=== PATIENT | male | born 1975 | race Asian ===

== ENCOUNTER 2017-06-02 08:55 | Day surgery (SDC) | payer BC, OTHER ==
[~2017-06-02] VITALS: Ht 180.3 cm; Wt 88.9 kg
[~2017-06-02 08:55] MED LIST: AUGMENTIN 500-500 MG PO; K-PHOS ORIGINAL1 EA PO; MINOCYCLINE HC100 MG PO; PERCOCET 7.5-31 EACH PO; PROVENTIL HFA6.7 GM INH; ZITHROMAX250 MG PO
[2017-06-02] MEDS ORDERED: IBUPROFEN600 MG PO (13:56)
[2017-06-02] MEDS ORDERED: MAPAP325 MG PO (13:56)
[2017-06-02] MEDS ORDERED: PERCOCET 7.5-31 EACH PO (13:57)
--- NOTE | 2017-06-19 07:48 | OR ---
[facility] [address] [place], [place] [address] Signed DATE OF PROCEDURE: 06/02/17 PREOPERATIVE DIAGNOSES Recurrent ganglion, right volar distal forearm (radial side). POSTOPERATIVE DIAGNOSIS Recurrent ganglion, right volar distal forearm (radial side). PROCEDURE Exploration and excision of soft tissue/ganglion, right volar forearm. SURGEON: Greg Veras MD. ANESTHESIA Carole block (Greg Kelley) and local 7 mL of 0.25% Marcaine with Epinephrine. INDICATION This 41-year-old man is a patient of Dr. Marcio Miranda. In 1997, he underwent excision of a volar distal forearm ganglion by Dr. Mark. A transverse incision was used. The patient has developed a soft tissue mass that is firm in the same area which is increasingly symptomatic especially when weightlifting. 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 He wishes it to be excised. The risks of bleeding, infection, nerve injury, arterial injury, recurrent disease, and other unforeseen complications were reviewed in detail. He understands and wished to proceed. FINDINGS The anesthetic was quite good. Intravenous sedation was maintained as well. Notably when the tourniquet was inflated, the nodule was less apparent. I was certain there was no radial artery aneurysm accounting for the mass clinically preoperatively. Dissection in the region of the radial artery did demonstrate a firm nodular soft tissue mass no doubt accounting for the finding of probable ganglion. The radial cutaneous branch nerve was identified and preserved as well. There were no findings of aneurysm of the artery itself, only the fibrous karon-adventitial soft tissue mass related to the radial artery accounting most likely for the nodule in question. DESCRIPTION OF PROCEDURE The patient was brought to the operating room and given a Carole block anesthetic. Preoperative antibiotic Ancef was given. The right arm was prepared with a Chlorhexidine solution and draped sterilely. A transverse scar from prior operation was easily identified and palpation of the area showed the mass that had been apparent in the Electronically Signed By: GREG VERAS MD 06/19/17 0748 PATIENT NAME: OLI TAMAYO OPERATIVE REPORT DATE OF : 79 PHYSICIAN: GREG VERAS MD REPORT #: [id number] REPORT IS CONFIDENTIAL AND NOT TO BE RELEASED WITHOUT AUTHORIZATION [facility] [address] [place], [place] [address] Signed preoperative area to be markedly diminished in its appearance. A longitudinal incision was made transecting the previous scar in the area known to have the nodule. Dissection was carried through the dermis sharply with loupe magnification and headlight illumination. Dissection was undertaken ultimately identifying a tubular structure which was initially suggestive of the radial artery, but which ultimately was found to be a cutaneous nerve branch of the radial nerve and this was unharmed. Dissection was undertaken more deeply and medially (in the ulnar direction) which identified the radial artery proper. The soft tissue mass on the medial anterior aspect was dissected free and it had a fibrous capsule highly suggestive of ganglion. This was dissected free with meticulous care from the artery. Dissection was undertaken more proximally on the artery and distally as well to be certain there was no aneurysmal change or other problem. The fibrous capsule like nodular mass was excised and passed for pathology. Further dissection was undertaken between the vein which was medial to it and the artery itself and there was no other sign of a ganglion or other soft tissue mass. The small branches of tiny veins associated with the deep soft tissue were ligated with 4-0 Vicryl ties and paired veins along the radial artery were secured with similarly as needed. Radial artery was quite normal without sign of aneurysmal change, only the karon-adventitial tissue that had been excised. Irrigation was undertaken and the tourniquet was let down to assure of hemostasis. Pulsations returned to the radial artery as anticipated. There was no untoward bleeding. A small amount of Leann was placed into the wound. The wound was closed with interrupted 4-0 Vicryl in a deep dermal layer and Steri-Strips were applied as well as a gauze dressing, a Flexicon wrap and ultimately an Ben wrap. He was taken to recovery room in good condition still sedated and without problem. Tourniquet time was 42 minutes. The operation was rather prolonged due to the challenge of identifying the offending ganglion and soft tissue abnormality that was accomplished safely. MD NICO Ag/Juliano /[id number] Electronically Signed By: GREG VERAS MD 06/19/17 0748 PATIENT NAME: OLI TAMAYO OPERATIVE REPORT DATE OF : 79 PHYSICIAN: GREG VERAS MD REPORT #: [id number] REPORT IS CONFIDENTIAL AND NOT TO BE RELEASED WITHOUT AUTHORIZATION [address] [address] Signed cc: Marcio Miranda DO Electronically Signed By: GREG VERAS MD 06/19/17 0748 PATIENT NAME: OLI TAMAYO Jameson OPERATIVE REPORT DATE OF : 79 PHYSICIAN: GREG VERAS MD REPORT #: [id number] REPORT IS CONFIDENTIAL AND NOT TO BE RELEASED WITHOUT AUTHORIZATION
== END 2017-06-02 15:40 | disposition home or self-care (01) ==
LOC: DS 08:55
PROVIDERS: Surgery
PROC: 0LB50ZZ Excision of Right Lower Arm and Wrist Tendon, Open Approach (ICD-10-PCS; principal; 2017-06-02 10:00)
DX: M67.431 Ganglion, right wrist (principal); Z88.8 Allergy status to other drugs, medicaments and biological substances; Z98.890 Other specified postprocedural states
CPT/HCPCS: 01820; J0690; J1100; J1885; J2250; J2270; J2405; J2704; J2765; J3010; J7120

== ENCOUNTER 2018-12-06 11:13 | Emergency (ER) | payer BC, OTHER ==
[~2018-12-06] VITALS: Ht 180.3 cm; Wt 88.9 kg
--- OUTSIDE RECORDS SUMMARY | ~2018-12-06 | XMS | Clinical Summary ---
Demographics + + + | Address | [address] | | | [place] [address] | + + + | Home Phone | | + + + | Preferred Language | Unknown | + + + | Marital Status | | + + + | Sikhism Affiliation | Unknown | + + + | Race | Unknown | + + + | Ethnic Group | Unknown | + + + Author + + + | Author | [facility] | | | and [place] | + + + | Organization | [facility] | | | and [place] | + + + | Address | Unknown | + + + | Phone | Unavailable | + + + Support + + + + + | Name | Relationship | Address | Phone | + + + + + | Carmen Fontenot | ECON | [place] [address] | | | | | Unknown | | + + + + + Care Team Providers + +------+ + | Care Center Consultant Name | Role | Phone | + +------+ + PP | Unavailable | + +------+ + Allergies Not on File Medications Not on file Active Problems Not on file Social History + +-------+ +--------+------+ | Tobacco Use | Types | Packs/Day | Years | Date | | | | | Used | | + +-------+ +--------+------+ | Never Assessed | | | | | + +-------+ +--------+------+ + + + | Sex Assigned at | Date Recorded | | | | + + + | Not on file | | + + + + + + + | Job Start Date | Occupation | Industry | + + + + | Not on file | Not on file | Not on file | + + + + + + + + | Travel History | Travel Start | Travel End | + + + + + + | No recent travel history available. | + + Plan of Treatment +--------+---------+ + + + | Date | Type | Specialty | Care Team | Description | +--------+---------+ + + + | 01/17/ | Office | | Edward Miradna | | | 2018 | Visit | | DO [facility] [address] | | | | | | [place] | | | | | | [phone] | | | | | | [phone] | | | | | | | | +--------+---------+ + + + + + + + + | Health Maintenance | Due Date | Last Done | Comments | + + + + + | Vaccine: | | | | | Dtap/Tdap/Td (1 - | 7 | | | | Tdap) | | | | + + + + + | Vaccine: Influenza | | | | | (Season Ended) | 9 | | | + + + + + Results Not on filefrom Last 3 Months Advance Directives Patient has advance care planning documents on file. For more information, please contact:[facility] [address]"
--- OUTSIDE RECORDS SUMMARY | ~2018-12-06 | XMS | Clinical Summary ---
Demographics + + + | Address | [address] | | | [place] [address] | + + + | Home Phone | | + + + | Preferred Language | Unknown | + + + | Marital Status | | + + + | Nondenominational Affiliation | Unknown | + + + | Race | Unknown | + + + | Ethnic Group | Unknown | + + + Author + + + | Author | [facility] | | | and [place] | + + + | Organization | [facility] | | | and [place] | + + + | Address | Unknown | + + + | Phone | Unavailable | + + + Support + + + + + | Name | Relationship | Address | Phone | + + + + + | Carmen Fontenot | ECON | [place] [address] | | | | | Unknown | | + + + + + Care Team Providers + +------+ + | Care Model Photographers' Name | Role | Phone | + [...] | 01/17/ | Office | | Edward Miranda | | | 2018 | Visit | | DO [facility] [address] | | | | | | [place] | | | | | | [phone] | | | | | | [phone] | | | | | | | [...] documents on file. For more information, please contact:[facility] [place] [address]"
[~2018-12-06 11:13] MED LIST changes: +IBUPROFEN600 MG PO; +MAPAP325 MG PO
== END 2018-12-06 12:57 | disposition home or self-care (01) ==
LOC: ED 11:13
DX: S63.502A Unspecified sprain of left wrist, initial encounter (principal); X50.0XXA Overexertion from strenuous movement or load, initial encounter; Z88.1 Allergy status to other antibiotic agents; Z88.8 Allergy status to other drugs, medicaments and biological substances; Z79.899 Other long term (current) drug therapy
CPT/HCPCS: 73110; 99283

== ENCOUNTER 2025-06-26 06:24 | Day surgery (SDC) | payer BC, OTHER ==
[~2025-06-26] VITALS: Ht 180.3 cm; Wt 93.1 kg
--- NOTE | ~2025-06-26 | OR ---
[facility] [address] [place] [address] Draft DATE OF OPERATION: 06/26/2025 SURGEON: Greg Veras MD PREOPERATIVE DIAGNOSIS: Colon screening. POSTOPERATIVE DIAGNOSIS: Small polyp, left colon, probably hyperplastic versus lymphoid aggregate. PROCEDURE: Total colonoscopy to cecum with cold morcellation polypectomy x1. ANESTHESIA: Intravenous sedation; fentanyl 100 mcg and Versed 9 mg. INDICATION: This 49-year-old man is a patient of Dr. Aburto and well known to me from the past. He is referred for screening colonoscopy, having never undergone colon evaluation in the past. He has no current symptoms of bleeding, diarrhea, or constipation and no family history of colon cancer. He understands the risk of bleeding, infection, and perforation related to colonoscopy and wished to proceed. FINDINGS: The prep was good. Complete colonoscopy was undertaken of the cecum. There was no evidence of diverticulosis, but he did have a small polyp, possibly hyperplastic versus a lymphoid aggregate in the proximal left colon. Retroflexed view was normal as well. DESCRIPTION OF PROCEDURE: The patient was brought to the endoscopy suite and placed in the lateral decubitus position, given intravenous sedation to the point of slurred speech and nystagmus with full cardiopulmonary monitoring. Digital rectal examination was normal. An Olympus video colonoscope was passed in the rectum and manipulated throughout the colon ultimately intubating the right colon with visualization of the cecum. Irrigation was undertaken as necessary. The scope was then withdrawn and examination throughout showed no sign of abnormality into the left colon where a small very subtle polyp was noted, it likely would be a hyperplastic polyp, might represent a lymphoid aggregate, less likely an adenoma. Further withdrawal showed no other abnormality. Retroflexed view of the rectum was normal except for some hypertrophied anal papilla. The scope was removed and the patient was taken to the recovery room in good condition. PATIENT NAME: OLI TAMAYO OPERATIVE REPORT DATE OF : 79 REPORT #: [id number] PHYSICIAN: GREG VERAS MD PCP: LORENZO ABURTO MD REPORT IS CONFIDENTIAL AND NOT TO BE RELEASED WITHOUT AUTHORIZATION [facility] [address] [facility], [place] [address] Draft CONCLUDING DIAGNOSIS: Small polyp left colon (excised). PLAN: Recommend repeat colonoscopy in 10 years. I will certainly review the pathology report to affirm this recommendation. He will return to the ongoing care of Dr. Aburto otherwise. Greg Veras MD JM/MODL /[id number] cc: Lorenzo Aburto MD Copies: LORENZO ABURTO DMD ~ PATIENT NAME: OLI TAMAYO OPERATIVE REPORT DATE OF : 79 REPORT #: [id number] PHYSICIAN: GREG VERAS MD PCP: LORENZO ABURTO MD REPORT IS CONFIDENTIAL AND NOT TO BE RELEASED WITHOUT AUTHORIZATION
[~2025-06-26 06:24] MED LIST changes: +MIDAZOLAM HCL 5 MG/5 ML VIAL IV PRN; +fentaNYL citrate 100 MCG/2 ML VIAL IV PRN
[2025-06-26 06:43] VITALS: BP 138/90
[2025-06-26] MEDS ORDERED: ALLOPURINOL300 MG PO (06:44)
[2025-06-26] MEDS ORDERED: AMLODIPINE BESYL5 MG PO (06:45)
[2025-06-26] MEDS ORDERED: IBLOOD GLUCOSE TEST STRIP 1 EA TEST VI PRN (07:00)
[2025-06-26] MEDS ORDERED: LACTATED RINGER'S 1,000 ML IV SCH (07:00)
[2025-06-26] MEDS ORDERED: LIDOCAINE HCL 1% 5 ML SDV INJ ONE (07:00)
[2025-06-26] MEDS ORDERED: fentaNYL citrate 100 MCG/2 ML VIAL ONE (07:04)
[2025-06-26] MEDS ORDERED: MIDAZOLAM HCL 5 MG/5 ML VIAL ONE (07:04)
[2025-06-26 08:58] VITALS: BP 124/85
--- NOTE | 2025-06-26 09:14 | NUR ---
06/26/25 0914 Leyla Hawkins 0829 PT ARRIVED IN PACU SLEEPY. ABD SOFT. 0840 DR AT BEDSIDE. ALL QUESTIONS ANSWERED. 0845 SITTING UP IN BED SIPPING ON WATER. 0850 DC INSTRUCTIONS GIVEN. 0903 LEFT VIA W/C.
--- NOTE | 2025-06-28 10:55 | PATH ---
[facility] [address] [place], [place] [address] Signed SPECIMEN(S): A DESCENDING LEFT COLON POLYP SPECIMEN SOURCE: A. DESCENDING LEFT COLON POLYP CLINICAL HISTORY: Screening, colon polyp FINAL PATHOLOGIC DIAGNOSIS: Descending/left colon polyp: - Polypoid colonic mucosa with adenomatous change (multiple fragments). J MICROSCOPIC EXAMINATION: Histologic sections of all submitted blocks are examined by light microscopy. These findings, together with the gross examination, support the pathologic diagnosis. GROSS DESCRIPTION: The specimen, labeled and designated "Po, descending/left colon polyp," is received in formalin and consists of five hoff soft tissue fragments, ranging from 0.1-0.5 cm. Entirely submitted in (A1). VB (under the direct supervision of a pathologist) The Gross Description was prepared using a voice recognition system. The report was reviewed for accuracy; however, sound-alike word errors, addition and/or deletions may occur. If there is any question about this report, please contact Client Services. ADDITIONAL NOTES: Immunohistochemical and/or in situ hybridization studies if performed in this case included appropriate positive controls that reacted as expected. This test was developed and its performance characteristics determined by [facility]. It has not been cleared or approved by the U.S. Food and Drug Administration. The FDA has determined that such clearance or approval is not necessary. This test is used for clinical purposes. It should not be regarded as investigational or for research. [facility] is certified under the Clinical Laboratory Improvement Amendments of 1988 (CLIA) as qualified to perform high complexity clinical laboratory testing. PATIENT NAME: OLI TAMAYO PATHOLOGY DATE OF : 79 REPORT #: [id number] PHYSICIAN: JAZMYNE BASHIR PCP: LORENZO ABURTO MD REPORT IS CONFIDENTIAL AND NOT TO BE RELEASED WITHOUT AUTHORIZATION [address] [address] Signed PERFORMING LABORATORY: Technical component was performed by [facility], [address] [place] [address] (CLIA# [id number]). Professional interpretation was performed by [facility] - [address] [place] [address] (CLIA#: [id number]). Diagnostician: Ant Grant MD Pathologist Electronically Signed 06/28/2025 Copies: ~ PATIENT NAME: OLI TAMAYO PATHOLOGY DATE OF : 79 REPORT #: [id number] PHYSICIAN: JAZMYNE BASHIR PCP: LORENZO ABURTO MD REPORT IS CONFIDENTIAL AND NOT TO BE RELEASED WITHOUT AUTHORIZATION
== END 2025-06-26 09:03 | disposition home or self-care (01) ==
LOC: DS 06:24
PROVIDERS: ATTEND Surgery
PROC: 0DBG8ZZ Excision of Left Large Intestine, Via Natural or Artificial Opening Endoscopic (ICD-10-PCS; principal; 2025-06-26 07:30)
DX: Z12.11 Encounter for screening for malignant neoplasm of colon (principal); D12.4 Benign neoplasm of descending colon; M10.9 Gout, unspecified; Z88.5 Allergy status to narcotic agent; Z88.1 Allergy status to other antibiotic agents; Z79.899 Other long term (current) drug therapy; Z87.39 Personal history of other diseases of the musculoskeletal system and connective tissue
CPT/HCPCS: 99153; G0500; J2250; J3010; J7121